=== PATIENT | male | born 1985 | race Caucasian/White ===

== ENCOUNTER 2021-03-18 10:58 | Emergency (ER) | payer OTHER ==
[2021-03-18] MEDS ORDERED: BENZONATATE100 MG PO ×2 (13:42→13:47)
[2021-03-18] MEDS ORDERED: MEDROL DOSEPAK 24 MG PO ×2 (13:42→13:47)
[2021-03-18] MEDS ORDERED: PROVENTIL HFA6.7 GM INH ×2 (13:42→13:47)
== END 2021-03-18 13:58 | disposition home or self-care (01) ==
LOC: ER1 10:58
DX: J40 Bronchitis, not specified as acute or chronic (principal); Z20.822 Contact with and (suspected) exposure to COVID-19
CPT/HCPCS: 71045; 99283; U0002